=== PATIENT | male | born 1980 | race Caucasian/White ===

== ENCOUNTER 2022-02-03 18:12 | Emergency (ER) | payer OTHER ==
[~2022-02-03] VITALS: Ht 180.3 cm; Wt 102.1 kg
[2022-02-03] MEDS ORDERED: METF500 PO (18:20)
[2022-02-03] MEDS ORDERED: ATOR10 PO (18:21)
== END 2022-02-03 20:18 | disposition home or self-care (01) ==
LOC: ER 18:12
DX: S09.90XA Unspecified injury of head, initial encounter (principal); S01.01XA Laceration without foreign body of scalp, initial encounter; E78.5 Hyperlipidemia, unspecified; E11.9 Type 2 diabetes mellitus without complications; W18.09XA Striking against other object with subsequent fall, initial encounter; Z79.899 Other long term (current) drug therapy; Z79.84 Long term (current) use of oral hypoglycemic drugs
CPT/HCPCS: 70450